=== PATIENT | male | born 1960 | race Caucasian/White ===

== ENCOUNTER 2019-06-15 05:29 | Day surgery (SDC) | payer OTHER ==
[2019-06-15] MEDS: SOD CHLORIDE 0.9% 1,000 ML IV (06:54)
[2019-06-15] MEDS ORDERED: ROPIVACAINE 0.5 % 30 ML VIAL (06:58)
[2019-06-15] MEDS ORDERED: CEFAZOLIN 1 GM INJ (07:00)
[2019-06-15] MEDS ORDERED: MIDAZOLAM 1 MG/ML 2 ML INJ (07:19)
[2019-06-15] MEDS ORDERED: PROPOFOL 20 ML (07:42)
[2019-06-15] MEDS ORDERED: ROCURONIUM 50 MG INJ (07:42)
[2019-06-15] MEDS ORDERED: LIDOCAINE 2% (SDV) 5 ML INJ (07:42)
[2019-06-15] MEDS ORDERED: morphine 2 MG INJ IV (08:00)
[2019-06-15] MEDS: POLYMYXIN/BACITRACIN 1L IRRIG (08:58)
[2019-06-15] MEDS: NEOMYC/POLYMYX/BACIT 30 GM OINT (08:59)
[2019-06-15] MEDS: BUPIVACAINE 0.5% (SDV) 30 ML INJ (08:59)
[2019-06-15] MEDS ORDERED: CA CHLORIDE (GM) 10% 10 ML INJ (09:11)
[2019-06-15] MEDS: CA CHLORIDE 10% 10 ML SYRINGE (09:26)
[2019-06-15] MEDS: THROMBIN 5000 UNIT (RECOTHROM) VIAL (09:26)
[2019-06-15] MEDS: KETOROLAC 30 MG INJ IV (09:30)
[2019-06-15] MEDS ORDERED: ONDANSETRON 4 MG INJ ×2 (09:33→10:21)
[2019-06-15] MEDS ORDERED: DEXAMETHASONE 4 MG/ML 5 ML INJ (09:33)
[2019-06-15] MEDS ORDERED: KETOROLAC 30 MG INJ (09:34)
[2019-06-15] MEDS ORDERED: NEOSTIGMINE 3 MG/3 ML SYRINGE (09:57)
[2019-06-15] MEDS ORDERED: GLYCOPYRROLATE 0.4 MG INJ (09:57)
[2019-06-15] MEDS ORDERED: FENTAnyl 50 MCG/ML VIAL (10:21)
[2019-06-15] MEDS ORDERED: HYDROmorphONE 1 MG/5 ML IV SYRINGE IV ×3 (10:21→10:30)
[2019-06-15] MEDS: HYDROmorphONE 1 MG/5 ML IV SYRINGE IV (10:27)
[2019-06-15] MEDS: ONDANSETRON 4 MG INJ IV (10:27)
[2019-06-15] MEDS: FENTAnyl 50 MCG/ML VIAL IV (10:27)
[2019-06-15] MEDS ORDERED: OXYCODONE/ACETAMINOPHEN (5/325) TAB PO ×2 (10:30)
[2019-06-15] MEDS ORDERED: DIPHENHYDRAMINE 50 MG INJ IV (10:30)
[2019-06-15] MEDS ORDERED: KETOROLAC 30 MG INJ IV (10:30)
[2019-06-15] MEDS ORDERED: hydrALAzine 20 MG INJ IV (10:30)
[2019-06-15] MEDS ORDERED: MEPERIDINE 25 MG INJ IV (10:30)
[2019-06-15] MEDS ORDERED: ALBUTEROL 0.083% (NEB) 2.5 MG/3 ML AMP HHN (10:30)
[2019-06-15] MEDS ORDERED: FENTAnyl 50 MCG/ML VIAL IV ×2 (10:30)
[2019-06-15] MEDS ORDERED: METOCLOPRAMIDE 10 MG INJ IV (10:30)
[2019-06-15] MEDS ORDERED: LABETALOL HCL 20MG INJ IV (10:30)
[2019-06-15] MEDS ORDERED: EPHEDrine 25 MG/5 ML SYG IV (10:30)
== END 2019-06-15 13:30 | disposition home or self-care (01) ==
LOC: SDS 05:29
DX: S86.011A Strain of right Achilles tendon, initial encounter (principal); X58.XXXA Exposure to other specified factors, initial encounter; M76.61 Achilles tendinitis, right leg; M21.6X1 Other acquired deformities of right foot; M77.51 Other enthesopathy of right foot and ankle; E11.9 Type 2 diabetes mellitus without complications
CPT/HCPCS: 27654; 73610-RT; 82306; 82962